=== PATIENT | male | born 2000 | race Caucasian/White ===

== ENCOUNTER 2025-04-17 14:46 | Emergency (ER) | payer SELFPAY ==
[~2025-04-17] VITALS: Wt 106.6 kg
[2025-04-17] MEDS ORDERED: AMOX-CLAV 875-1 EACH PO (15:46)
[2025-04-17] MEDS ORDERED: MELOXICAM15 MG PO (15:46)
[2025-04-17] MEDS ORDERED: Amoxicillin/Clavulanate Pota 875 MG TAB PO ONE (15:50)
== END 2025-04-17 16:17 | disposition home or self-care (01) ==
LOC: ED 14:46
DX: K04.7 Periapical abscess without sinus (principal)